=== PATIENT | female | born 1990 | race Caucasian/White ===

== ENCOUNTER 2021-10-01 12:36 | Emergency (ER) | payer OTHER, SELFPAY ==
--- NOTE | ~2021-10-01 | CT_ITS ---
EXAMINATION: CT brain wo con DATE: 10/01/2021 16:22 INDICATION: headache, dizziness TECHNIQUE: Computed tomography (CT) of the head was performed without intravenous contrast. The mA wa s adjusted according to patient size. Iterative reconstruction technique was employed. The dose-lengt h product was 605.33 mGy-cm. COMPARISON: None FINDINGS: No acute intracranial hemorrhage or extra-axial fluid collection. No hydrocephalus, mass, or herniation. No acute ischemic infarct. Unremarkable dural venous sinus attenuation. No acute osseous abnormality. The aerated spaces are clear. IMPRESSION: No acute intracranial process. Reviewed, dictated and finalized at location K.
--- NOTE | ~2021-10-01 | CT_ITS ---
EXAMINATION: CT abdomen pelvis w con DATE: 10/01/2021 16:36 INDICATION: Right abdominal pain. TECHNIQUE: Computed tomography (CT) of the abdomen and pelvis was performed with 100 mL Omnipaque 350 intravenous contrast. Automated exposure control and iterative reconstruction technique were employe d. The dose-length product was 962.30 mGy-cm. COMPARISON: None. FINDINGS: The visualized portions of the lung bases demonstrate minimal atelectasis. No pleural effus ion. The heart size is normal. No pericardial effusion. There is a small sliding hiatal hernia. The l iver, spleen, pancreas, and adrenal glands are normal. There is a gallstone in the gallbladder, which is normal in size. Right kidney is normal. There is a 1 mm nonobstructing stone in left kidney. Ther e are no dilated loops of bowel. The appendix is normal. There are no pathologically enlarged lymph n odes. There is no free intraperitoneal fluid. There is fat stranding in anterior abdominal wall, whic h may be injection sites or other mild inflammation. There is mild thoracolumbar spondylosis. IMPRESSION: 1. Small sliding hiatal hernia. 2. Cholelithiasis. No evidence of acute cholecystitis. Reviewed, dictated and finalized at location B.
[2021-10-01 12:39] VITALS: BP 112/57; PULSE 66; RESP 17; TEMP 36.7; O2SAT 100
[2021-10-01 13:30] LABS: Basophils Percent Auto 0.8 % (0.2-1.2); Eosinophils Absolute Auto 0.1 K/mm3 (0-0.3); Eosinophils Percent Auto 1.6 % (0-4.4); Hematocrit 37.6 % (37.0-47.0); Hemoglobin 12.1 g/dL (12.0-15.0); Immature Granulocyte Absolute 0.01 K/mm3 (0.00-0.031); Immature Granulocyte Percent A 0.2 % (0-0.5); Lymphocytes Absolute Auto 1.81 K/mm3 (0.9-3.2); Lymphocytes Percent Auto 35.6 % (18.3-44.2); Mean Corpuscular HGB Conc 32.2 g/dl (32-36); Mean Corpuscular Hemoglobin 28.6 pg (26-34); Mean Corpuscular Volume 88.9 fl (80-100); Mean Platelet Volume 9.3 fl (7.4-10.4); Monocytes Absolute Auto 0.3 K/mm3 (0.1-0.6); Monocytes Percent Auto 6.5 % (2.6-8.5); Neutrophils Absolute Auto 2.8 K/mm3 (1.3-6.7); Neutrophils Percent Auto 55.3 % (45.5-73.1); Platelet Count Result 269 k/mm3 (150-375); Red Blood Count 4.23 M/mm3 (4.2-5.4); Red Cell Distribution Width 12.9 % (11.5-14.5); White Blood Count 5.1 K/mm3 (4.5-10.0)
--- NOTE | 2021-10-01 13:36 | ED.ABDPAIN ---
HPI - Abdominal Pain General Chief Complaint: Abdominal Pain Stated Complaint: abdominal pain Time Seen by Provider: 10/01/21 13:36 Source: patient Mode of arrival: ambulatory Limitations: no limitations History of Present Illness HPI narrative: Patient is a 31-year-old female with a history of former opiate abuse presenting to the emergency department for evaluation of multiple complaints. Patient reports over the past several weeks she has had intermittent dizziness with standing, nausea, vomiting, upper abdominal pain. Patient reports pain in her right upper and lower quadrant which is intermittent, dull, aching in nature. Patient denies fever, chills, reports decreased oral intake secondary to the pain. She denies dysuria or hematuria. She recently had her Nexplanon removed in her right upper extremity, does not believe that she is . Patient denies any flank pain. Patient also reports headache pain over the past several weeks. She denies vision changes. She denies focal weakness or numbness. She has been ambulatory without recent fall or injury. Patient has not been taking any medications. Related Data Home Medications Medication Instructions Recorded Confirmed hydroxyzine pamoate 25 mg capsule 25 mg PO QHS 09/24/21 09/24/21 lamotrigine 150 mg tablet 75 mg PO DAILY 09/24/21 09/24/21 prazosin 1 mg capsule 1 mg PO QHS 09/24/21 09/24/21 venlafaxine 37.5 mg 37.5 mg PO DAILY 09/24/21 09/24/21 capsule,extended release 24 hr Allergies Allergy/AdvReac Type Severity Reaction Status Date / Time No Known Allergies Allergy Unverified 09/24/21 11:11 Review of Systems Review of Systems: CONSTITUTIONAL: Denies fever, chills, or sweats. EYES: Denies visual changes, redness, or discharge. ENT: Denies rhinorrhea, congestion, sore throat, or otalgia. CARDIOVASCULAR: Denies chest pain, palpitations, or edema. RESPIRATORY: Denies cough or dyspnea. GASTROINTESTINAL: Reports right upper and right lower abdominal pain, nausea, vomiting, denies diarrhea GENITOURINARY: Denies dysuria or hematuria. SKIN: Denies rash or itching. MUSCULOSKELETAL: Denies back pain, joint pain, or myalgia. NEUROLOGIC: Reports headache, denies focal weakness, reports intermittent dizziness PMFSH Past Medical History Medical History Anxiety Depression Insertion of Nexplanon 2014 OCD (obsessive compulsive disorder) PTSD (post-traumatic stress disorder) Right knee injury avinash in right knee Surgical History Surgical History Delivery by section xs 3 Family History Family History Other Depression Diabetes mellitus Multiple sclerosis Skin cancer Social History Social History Smoking status: Never smoker Alcohol intake: never Substance use: former Substance use type: methamphetamine Additional occupation/education comments: [employer] worker Gender identity (if verbalized by the patient): Female Sexual Orientation (if Verbalized by the Patient): Straight or Heterosexual Exam Narrative: GENERAL: Awake, alert, conversant HEAD: Normocephalic, atraumatic. EYES: PERRLA and EOMI. ENT: Nares clear, no rhinorrhea or epistaxis. Mucous membranes moist. NECK: Supple. No rigidity. Negative Brudzinski. CHEST: No respiratory distress, breathing even and non labored HEART: Regular rate, sinus rhythm ABDOMEN:Non distended, non tender EXTREMITIES: Normal range of motion. No edema. SKIN: Warm, dry, no rash. NEURO:No focal deficits. Alert and oriented x3. Finger to nose intact bilaterally. EOMs intact without nystagmus. No facial droop/asymmetry noted bilaterally. Grimace intact. Intact sensation in face. Hearing intact bilaterally. Shoulder shrug intact. Strength 5/5 bilateral upper extremities. Strength
[2021-10-01 13:42] LABS: Alanine Aminotransferase 15 U/L (4-35); Albumin Level 3.9 g/dL (3.5-5.1); Alkaline Phosphatase 57 U/L (38-126); Anion Gap 5 mmol/L (8-16); Aspartate Amino Transferase 30 U/L (14-36); Bilirubin,Total 0.3 mg/dL (0.2-1.3); Blood Urea Nitrogen 18 mg/dL (7-17); Calcium 8.5 mg/dL (8.4-10.2); Carbon Dioxide 29 mmol/L (22-30); Chloride 102 mmol/L (98-107); Estimated CRCL calculation 123 ml/min; Estimated Glomerular Filt Rate > 60; Glucose 98 mg/dL (65-110); Lipase 59 U/L (23-300); Sodium 136 mmol/L (137-145)
[2021-10-01 15:08] LABS: Appearance Urine Slightly Cloudy (Clear); Bilirubin Urine Negative (Negative); Color Urine Yellow (Yellow); Glucose Urine UA Negative (Negative); Ketones Urine Negative (Negative); Leukocyte Esterase Ur Trace LEU/UL (Negative); Nitrate Urine Negative (Negative); Protein Urine Negative (Negative); Urobilinogen Urine 0.2 mg/dL (<2.0)
[2021-10-01 15:17] LABS: Mucus Urine Few /lpf; Squamous Epithelial Cell Urine Many /hpf (Few)
[2021-10-01 15:28] LABS: Add Urine Microscopic? YES; Blood Urine Trace-Intact (Negative)
[2021-10-01] MEDS: ONDANSETRON INJ 4 MG/2 ML VIAL IV PUSH (15:40)
[2021-10-01] MEDS: SODIUM CHLORIDE 0.9% IV 1,000 ML 999 ML IV CONT (15:40)
[2021-10-01] MEDS: FAMOTIDINE 20 MG/2 ML VIAL IV PUSH (15:41)
[2021-10-01] MEDS: MECLIZINE HCL 25 MG TABLET PO (15:41)
[2021-10-01 15:54] LABS: Pregnancy On Board Control Positive; Urine Pregnancy Test Negative
[2021-10-01 17:05] VITALS: BP 120/78; PULSE 65; RESP 16; O2SAT 99
[2021-10-01 18:07] VITALS: BP 101/84; PULSE 63; RESP 16; O2SAT 98
== END 2021-10-01 18:12 | disposition home or self-care (01) ==
PROVIDERS: Emergency Provider Emergency Medicine; PCP Internal Medicine
DX: K44.9 Diaphragmatic hernia without obstruction or gangrene (principal); E86.0 Dehydration; R10.10 Upper abdominal pain, unspecified; F41.9 Anxiety disorder, unspecified; F32.A Depression, unspecified; F42.9 Obsessive-compulsive disorder, unspecified; F43.10 Post-traumatic stress disorder, unspecified
CPT/HCPCS: 36415; 70450; 74177; 80053; 81001; 81025; 83690; 85025; 96361; 96374; 96375; 99284; A9270; J2405; J7030; Q9967

== ENCOUNTER 2021-12-31 00:04 | Day surgery (SDC) | payer OTHER, SELFPAY ==
[2021-12-23 13:44] VITALS: BMI 35.4
[2021-12-31 10:18] VITALS: BP 103/86; PULSE 63; RESP 18; TEMP 36.6; O2SAT 100
--- NOTE | 2021-12-31 10:22 | PM.HPGS ---
History of Present Illness History of Present Illness Consent: Risks, benefits, and alternatives have been discussed and questions answered. Patient agrees to proceed with procedure. Chief complaint: abdominal pain, nausea, vomiting Narrative: Ca Meyer is a 31 year old female with abdominal pain and nausea, sometimes food will get stuck. She has been using nsaid's Review of Systems Constitutional: Constitutional: Denies headache(s) and Denies weakness Eyes: Eyes: Denies blurry vision ENT: Reports Normal hearing present, Denies headache(s) and Denies neck pain Cardiovascular: Cardiovascular: Denies chest pain and Denies dyspnea Respiratory: Respiratory: Denies dyspnea Gastrointestinal: Gastrointestinal: Reports no additional gastrointestinal complaints Genitourinary: Genitourinary: Denies dysuria Musculoskeletal: Musculoskeletal: Denies neck pain Integumentary/Breasts: Skin/Breast: Denies dry skin Neurologic: Reports Normal hearing present, Denies headache(s) and Denies weakness Psychiatric: Psychiatric: Denies anxiety Endocrine: Endocrine: Denies change in body appearance Hematologic/Lymphatic: Hematologic/Lymphatic: Denies easy bleeding Allergic/Immunologic: Allergic/Immunologic: Denies urticaria PMFSH Past Medical History Medical History (Updated 12/31/21 @ 10:23 by Loki Ace MD) Anxiety Depression Insertion of Nexplanon 2014 Nausea OCD (obsessive compulsive disorder) PTSD (post-traumatic stress disorder) Right knee injury avinash in right knee Surgical History Surgical History Delivery by section xs 3 Family History Family History Other Depression Diabetes mellitus Multiple sclerosis Skin cancer Social History Social History Smoking status: Never smoker Alcohol intake: former Substance use: former Substance use type: opiates and methamphetamine Other substance usage details: FENTANYL Living arrangements: alone Additional occupation/education comments: [employer] worker Gender identity (if verbalized by the patient): Female Sexual Orientation (if Verbalized by the Patient): Straight or Heterosexual Spiritual care concerns: No Meds Home Medications and Allergies Home Medications Medication Instructions Recorded Confirmed Type lamotrigine 150 mg tablet 150 mg PO DAILY 09/24/21 12/23/21 History (Lamictal) prazosin 1 mg capsule 1 - 3 mg PO QHS PRN Insomnia 09/24/21 12/23/21 History ondansetron 4 mg disintegrating 4 mg PO Q8H PRN nausea and 10/01/21 12/23/21 Rx tablet vomiting 7 days #20 tabs buprenorphine 100 mg/0.5 mL 100 mg subcut [id number] 12/23/21 12/23/21 History solution,exten.rel.subcutaneous syringe (Sublocade) hydroxyzine pamoate 25 mg capsule 25 mg PO HS PRN Anxiety 12/23/21 12/23/21 History pantoprazole 40 mg tablet,delayed 1 tablet PO DAILY 12/23/21 12/23/21 History release venlafaxine 75 mg capsule,extended 1 cap PO DAILY 12/23/21 12/23/21 History release 24 hr Allergies Allergy/AdvReac Type Severity Reaction Status Date / Time No Known Allergies Allergy Unverified 12/31/21 10:16 Vital Signs Vital Signs - 24 hr 12/31/21 10:18 Temperature 98 F Pulse Rate 63 Respiratory Rate 18 Blood Pressure 103/86 Pulse Oximetry 100 Oxygen Delivery Room Air Exam Const: General: comfortable and no acute distress HENMT: General nose exam: Normal nares present Eyes: General: appearance normal, both eyes and all related structures Neck: Neck: no JVD Resp: Auscultation: clear to auscultation bilaterally Cardio: Rate: regular rate Rhythm: regular rhythm GI: Inspection: non-distended GI Palp: Yes Soft to palpation Skin: General skin exam: normal color Neuro: General: gait normal Speech: normal speech Extr
[2021-12-31] MEDS: LACTATED RINGERS 1,000 ML 150 ML IV CONT (10:33)
[2021-12-31 10:44] VITALS: BP 84/40; PULSE 60; RESP 14; O2SAT 98
[2021-12-31 10:54] VITALS: BP 81/43; PULSE 57; RESP 13; O2SAT 98
[2021-12-31 11:04] VITALS: BP 102/61; PULSE 71; RESP 19; O2SAT 100
== END 2021-12-31 11:06 | disposition home or self-care (01) ==
PROVIDERS: PCP Internal Medicine; Visit Provider Internal Medicine Gastroenterology
PROC: 0DJ08ZZ Inspection of Upper Intestinal Tract, Via Natural or Artificial Opening Endoscopic (ICD-10-PCS; CPT 43235; principal; 2021-12-31 11:30)
DX: K44.9 Diaphragmatic hernia without obstruction or gangrene (principal); R11.2 Nausea with vomiting, unspecified; K21.9 Gastro-esophageal reflux disease without esophagitis; K29.50 Unspecified chronic gastritis without bleeding; F41.9 Anxiety disorder, unspecified; F32.A Depression, unspecified; F42.9 Obsessive-compulsive disorder, unspecified; F43.10 Post-traumatic stress disorder, unspecified; R10.9 Unspecified abdominal pain
CPT/HCPCS: 43239; 88305; J2001; J2704; J7120